=== PATIENT | female | born 1985 | race Caucasian/White ===

== ENCOUNTER 2023-06-18 15:52 | Emergency (ER) | payer OTHER ==
[2023-06-18] MEDS ORDERED: ACETAMINOPHEN 1000 MG/100 ML BAG IVPB ONE (16:09)
[2023-06-18] MEDS ORDERED: MAG HYDROX/AL HYDROX/SIMETH 30 ML UNIT-DOSE CUP PO ONE ×2 (16:09→20:33)
[2023-06-18] MEDS ORDERED: SODIUM CHLORIDE 0.9% 1000 ML INFUS.BAG IV ONE (16:09)
[2023-06-18] MEDS ORDERED: ONDANSETRON 4 MG/2 ML VIAL IVPUSH ONE (16:09)
[2023-06-18 16:13] VITALS: BP 134/86; PULSE 92; RESP 16; TEMP 98.4; BMI 22.6
[2023-06-18] MEDS ORDERED: ONDANSETRON 4 MG/2 ML VIAL ONE (16:49)
[2023-06-18] MEDS ORDERED: ACETAMINOPHEN INJECTION 100 ML IVPB ONE (16:49)
[2023-06-18] MEDS ORDERED: MAG HYDROX/AL HYDROX/SIMETH 30 ML UNIT-DOSE CUP ONE ×2 (16:49→20:37)
[2023-06-18 17:09] LABS: HEMATOCRIT 39.2 % (32.4-45.2); HEMOGLOBIN 13.2 G/dL (10.7-15.3); MCH 28.1 pg (25.7-33.7); MCHC 33.7 g/dl (32.0-36.0); MEAN CELL VOLUME 83.5 fl (80-96); MEAN PLT VOLUME 8.6 fl (7.5-11.1); PLATELET COUNT 287.7 10^3/uL (134-434); RDW 15.1 % (11.6-15.6); WHITE BLOOD COUNT 6.5 10^3/uL (4.0-10.8)
[2023-06-18 17:11] LABS: HCG,QUALITATIVE URINE Negative
[2023-06-18 17:14] LABS: INR 0.93 (0.83-1.09); PROTHROMBIN TIME (PATIENT) 10.8 SEC (9.7-13.0)
[2023-06-18 17:15] LABS: PLATELET ESTIMATE ADEQUATE
[2023-06-18 17:16] LABS: ACTIVATED PTT 31.5 SECONDS (25.2-36.5)
[2023-06-18 17:25] LABS: ALBUMIN 4.4 g/dl (3.4-5.0); ALK PHOS 88 U/L (45-117); ANION GAP 7 mmol/L (4-13); BILIRUBIN,TOTAL 0.2 mg/dl (0.2-1); CALCIUM 9.6 mg/dl (8.5-10.1); CHLORIDE 104 mmol/L (98-107); CO2 29 mmol/L (21-32); CREATININE 0.8 mg/dl (0.6-1.3); GLUCOSE,RANDOM 99 mg/dl (74-106); MAGNESIUM 2.4 mg/dL (1.8-2.4); POTASSIUM 4.5 mmol/L (3.5-5.1); SGOT/AST 18 U/L (15-37); SGPT/ALT 18 U/L (7-52); SODIUM 140 mmol/L (136-145); TOT PROT 6.9 g/dl (6.4-8.2)
[2023-06-18] MEDS ORDERED: FAMOTIDINE 20 MG/50 ML IVPB 20 MG/50 ML MG IVPB ONE ×2 (18:29→18:30)
[2023-06-18 20:21] LABS: LIPASE 111 U/L (73-393)
== END 2023-06-18 21:02 | disposition home or self-care (01) ==
LOC: FER 15:52
PROC: 3E033GC Introduction of Other Therapeutic Substance into Peripheral Vein, Percutaneous Approach (ICD-10-PCS; principal; 2023-06-18)
PROC: 3E033NZ Introduction of Analgesics, Hypnotics, Sedatives into Peripheral Vein, Percutaneous Approach (ICD-10-PCS; 2023-06-18)
PROC: 3E033GC Introduction of Other Therapeutic Substance into Peripheral Vein, Percutaneous Approach (ICD-10-PCS; 2023-06-18)
DX: R10.13 Epigastric pain (principal); R07.89 Other chest pain; R09.1 Pleurisy
CPT/HCPCS: 36415; 71046-TC-FY; 80053; 81003; 83690; 83735; 84484; 84703; 85027; 85379; 85610; 85730; 93005; 99285-25